=== PATIENT | female | born 1990 | race Caucasian/White ===

== ENCOUNTER 2017-07-08 01:13 | Emergency (ER) | payer MEDICAID ==
[2017-07-08 03:19] LABS: BASOPHIL % 0.2 % (0-2); PLATELET COUNT 251 x10^3mcL (130-400); RED CELL DISTRIBUTION WIDTH 12.9 % (11.5-14.5)
[2017-07-08 03:38] LABS: CALCIUM 8.8 mg/dL (8.5-10.1); CARBON DIOXIDE 27.9 mmol/L (21-32); CHLORIDE SERUM 104 mmol/L (98-107); CREATININE SERUM 0.7 mg/dL (0.6-1.0); GFR1 > 60 mL/min; GLUCOSE SERUM 109 mg/dL (74-106); POTASSIUM SERUM 4.1 mmol/L (3.5-5.1); SODIUM SERUM 140 mmol/L (136-145)
[2017-07-08 03:43] LABS: ALBUMIN 3.9 g/dL (3.4-5.0); ALKALINE PHOSPHATASE 67 U/L (46-116); ALT/SGPT 37 U/L (14-59); AMYLASE 60 U/L (25-115); AST/SGOT 23 U/L (15-37); LIPASE 207 IU/L (73-393); TOTAL PROTEIN, SERUM 7.7 g/dL (6.4-8.2)
[2017-07-08 04:52] VITALS: BP 129/94
== END 2017-07-08 04:52 | disposition home or self-care (01) ==
LOC: ED 01:13
PROVIDERS: Emergency Medicine
DX: K80.70 Calculus of gallbladder and bile duct without cholecystitis without obstruction (principal)
CPT/HCPCS: 83880; J2270; J2405; J7030; Q0092